=== PATIENT | female | born 1990 | race Caucasian/White ===

== ENCOUNTER 2017-05-30 13:20 | Inpatient (IN) | payer OTHER ==
[2017-05-30 13:47] VITALS: BMI 40.9
[2017-05-30 14:27] LABS: BASOPHIL 0.5 % (0-2.0); EOSINOPHIL 0.3 % (0-4.5); MCH 30.7 pg (25.7-33.7); MCHC 33.4 g/dl (32.0-36.0); MEAN PLT VOLUME 10.5 fl (7.5-11.1); NEUTROPHILS 83.5 % (42.8-82.8); PLATELET COUNT 135 K/MM3 (134-434); RDW 15.4 % (11.6-15.6); WHITE BLOOD COUNT 11.8 K/mm3 (4.0-10.0)
[2017-05-30 14:43] LABS: INR 0.96 (0.82-1.09); PROTHROMBIN TIME (PATIENT) 10.9 SEC (9.98-11.88)
[2017-05-30 14:46] LABS: ACTIVATED PTT 27.9 SECONDS (26.9-34.4)
[2017-05-30] MEDS ORDERED: ELECTROLYTE-148 SOLN 1,000 ML IV SCH (15:15)
[2017-05-30 15:24] LABS: ANION GAP 12 (8-16); CALCIUM 8.5 mg/dL (8.5-10.1); CO2 21 mmol/L (21-32); CREATININE 0.5 mg/dL (0.55-1.02); GLUCOSE,RANDOM 80 mg/dL (74-106)
[2017-05-30] MEDS ORDERED: PROMETHAZINE HCL 25 MG/1 ML VIAL IVPUSH ONE (19:00)
[2017-05-30] MEDS ORDERED: BUTORPHANOL TARTRATE 1 MG/ML VIAL IVPUSH ONE (19:00)
--- NOTE | 2017-05-30 23:50 | HP ---
Past Medical History - Primary Care Physician PCP:: Asa Saldivar - Admission Chief Complaint: 40 weeks, labor History of Present Illness: 26 yo f g 3 p0020 edc by sono 05/27/17 in labor, cx 3 cm 80 vx -2 mi, fhr cat 1 contraction q 3 , fhr cat1 History Source: Patient Limitations to Obtaining History: No Limitations - Past Medical History ...: 3 ...Para: 0 ...Term: 0 ...: 0 ...Spon : 0 ...Induced : 2 ...Multiple Gestation: 0 ...LMP: 08/11/16 ... Weeks Gestation by Dates: 41.5 ...EDC by Dates: 05/18/17 ...EDC by Sono: 05/27/17 - Past Surgical History Hx Myomectomy: No Hx Transabdominal Cerclage: No - Smoking History Smoking history: Never smoked Have you smoked in the past 12 months: No - Alcohol/Substance Use Hx Alcohol Use: No - Social History History of Recent Travel: No Home Medications - Allergies Allergies/Adverse Reactions: Allergies Allergy/AdvReac Type Severity Reaction Status Date / Time No Known Allergies Allergy Verified 05/30/17 13:39 - Home Medications Home Medications: Ambulatory Orders Vitamins (Sjr) - 1 tab PO DAILY 05/30/17 Review of Systems - Review of Systems Constitutional: reports: No Symptoms Eyes: reports: No Symptoms HENT: reports: No Symptoms Neck: reports: No Symptoms Cardiovascular: reports: No Symptoms Respiratory: reports: No Symptoms Gastrointestinal: reports: No Symptoms Breasts: reports: No Symptoms Reported Musculoskeletal: reports: No Symptoms Integumentary: reports: No Symptoms Neurological: reports: No Symptoms Endocrine: reports: No Symptoms Hematology/Lymphatic: reports: No Symptoms Psychiatric: reports: No Symptoms Physical Exam - Maternity Vital Signs: Vital Signs Temperature 98.6 F 05/30/17 22:00 Pulse Rate 88 05/30/17 23:00 Respiratory Rate 20 05/30/17 23:00 Blood Pressure 132/89 05/30/17 23:00 O2 Sat by Pulse Oximetry (%) Constitutional: Yes: Well Nourished, No Distress, Calm Eyes: Yes: WNL, Conjunctiva Clear, EOM Intact HENT: Yes: WNL, Atraumatic, Normocephalic Neck: Yes: WNL, Supple, Trachea Midline Cardiovascular: Yes: WNL, Regular Rate and Rhythm Breast(s): Yes: WNL - Abdominal Exam/OB Fundal Height: 40 Number of Fetuses: Single Presentation: Vertex Contractions: Yes Regularity: Irregular Intensity: Mod/Strong Monitor Mode: External Heart Rate Location: [facility] Category: I Accelerations: Uniform Decelerations: None - Vaginal Exam/OB Vaginal Bleediing: No Speculum Exam: No Dilatation (cm): 3 cm Amniotic Membrane Status: Intact Presentation: Vertex/Position Station: -2 - Physical Exam Edema: Yes Edema: LLE: Trace, RLE: Trace Deep Tendon Reflex Grade: Normal +2 - Labs Lab Results: CBC, BMP 05/30/17 14:08 05/30/17 14:08 Hemorrhage Risk Assessment - Risk Factors Medium Risk Factors: Yes: None High Risk Factors: Yes: None Risk Score: 1 Risk Level: Medium Risk Problem List - Problems (1) Postmaturity , 40-42 weeks gestation Code(s): O48.0 - POST-TERM (2) Labor established Code(s): [id number] - Assessment/Plan admit , fhm, pain management
--- NOTE | 2017-05-30 23:58 | PN ---
Progress Note (short form) - Note Progress Note: cx 5 cm 80 vx -2 mi , fhr cat 1 . irregular contraction, ,pitocin rba explained Problem List - Problems (1) Postmaturity , 40-42 weeks gestation Code(s): O48.0 - POST-TERM (2) Labor established Code(s): [id number] -
[2017-05-31] MEDS: ELECTROLYTE-148 SOLN 1,000 ML IV SCH
[2017-05-31] MEDS: OXYTOCIN 15 UNITS/ LR 250 ML 250 ML IVPB SCH (00:15)
[2017-05-31] MEDS: FENTANYL/BUPIVACAINE/NS/PF - PCEA - 50 ML DISP.SYRIN EP SCH (03:30)
[2017-05-31] MEDS ORDERED: ELECTROLYTE-148 SOLN 1,000 ML IV ONE (05:30)
--- NOTE | 2017-05-31 07:57 | PN ---
Progress Note (short form) - Note Progress Note: cx 6 cm 80 vx -2 mi, fhr cat 1, arom, clear , on pitocin, regular contraction,, has epidural Problem List - Problems (1) Postmaturity , 40-42 weeks gestation Code(s): O48.0 - POST-TERM (2) Labor established Code(s): [id number] -
--- NOTE | 2017-05-31 11:59 | PN ---
Progress Note (short form) - Note Progress Note: cx full 100 vx 2+ , fhr reactive, pushing Problem List - Problems (1) Postmaturity , 40-42 weeks gestation Code(s): O48.0 - POST-TERM (2) Labor established Code(s): [id number] -
[2017-05-31] MEDS: OXYTOCIN 20 UNITS in 0.9% NS 1,000 ML IV SCH ×2 (12:15→14:10)
[2017-05-31] MEDS ORDERED: BISACODYL 10 MG SUPP.RECT RC PRN (12:28)
[2017-05-31] MEDS ORDERED: BENZOCAINE 20% 57 GM BOTTLE TP PRN (12:28)
[2017-05-31] MEDS ORDERED: WITCH HAZEL 50% (TUCKS) 40 PAD/JAR PAD TP PRN (12:28)
[2017-05-31] MEDS ORDERED: BENZOCAINE 28 GM HEMORRHOIDAL OINTMENT TP PRN (12:28)
[2017-05-31] MEDS ORDERED: METHYLERGONOVINE MALEATE 0.2 MG/1 ML AMP IM PRN (12:28)
[2017-05-31] MEDS ORDERED: oxyCODONE HCL 5 MG TABLET PO PRN (12:28)
[2017-05-31] MEDS ORDERED: D5W-LR W/ 20 UNITS OXYTOCIN 1,000 ML IV SCH (12:30)
[2017-05-31 12:52] LABS: ARTERIAL BLD GAS O2 SATURATION 16.1 % (90-98.9); ARTERIAL BLOOD GAS BASE EXCESS -11.1 meq/l (-2-2); ARTERIAL BLOOD GAS HCO3 21.5 meq/L (22-26); ARTERIAL BLOOD GAS PO2 16.5 mmHg (80-100)
[2017-05-31 12:56] LABS: TYPE OF O2 room air
[2017-05-31 12:57] LABS: ARTERIAL BLOOD GAS pH 7.09 (7.35-7.45)
[2017-05-31 12:59] LABS: VENOUS BLOOD GAS HCO3 19.4 meq/L (19-25); VENOUS PH 7.28 (7.32-7.42)
[2017-05-31] MEDS: IBUPROFEN 600 MG TABLET (FP) PO PRN ×2 (13:08→17:13)
[2017-05-31] MEDS: ACETAMINOPHEN 325 MG TABLET (FP) PO PRN ×2 (13:09→17:12)
[2017-05-31] MEDS: FERROUS SO4 325 MG TABLET (FP) PO SCH (21:49)
[2017-06-01 08:57] LABS: BASOPHIL 0.4 % (0-2.0); EOSINOPHIL 0.8 % (0-4.5); MCH 31.3 pg (25.7-33.7); MCHC 33.3 g/dl (32.0-36.0); MEAN CELL VOLUME 93.9 fl (80-96); MEAN PLT VOLUME 10.7 fl (7.5-11.1); NEUTROPHILS 72.3 % (42.8-82.8); PLATELET COUNT 115 K/MM3 (134-434); RDW 15.6 % (11.6-15.6); WHITE BLOOD COUNT 13.1 K/mm3 (4.0-10.0)
[2017-06-01] MEDS: PRENATAL VITAMINS W/ FOLIC ACID TABLET (FP) PO SCH (09:50)
[2017-06-01] MEDS: FERROUS SO4 325 MG TABLET (FP) PO SCH ×2 (09:50→22:45)
[2017-06-01] MEDS ORDERED: DIPHTH,PERTUSS(ACELL),TET 0.5 ML DISP.SYRIN IM ONE (14:00)
[2017-06-01] MEDS ORDERED: FLU VACC QS2017-18 36MOS UP/PF 60 MCG/0.5 ML SYRINGE IM ONE (14:00)
[2017-06-01] MEDS: OXYTOCIN 15 UNITS/ LR 250 ML 250 ML IVPB SCH (19:29)
[2017-06-01] MEDS: FENTANYL/BUPIVACAINE/NS/PF - PCEA - 50 ML DISP.SYRIN EP SCH (19:30)
[2017-06-01] MEDS: ELECTROLYTE-148 SOLN 1,000 ML IV SCH (19:30)
--- NOTE | 2017-06-01 21:57 | PN ---
Progress Note (short form) - Note Progress Note: ppd 1doing well, no c/o voids ok CBC, BMP 06/01/17 08:00 05/30/17 14:08 Last Vital Signs Temp Pulse Resp BP Pulse Ox 99.4 F 112 H 20 122/74 100 06/01/17 14:00 06/01/17 14:00 06/01/17 14:00 06/01/17 14:00 05/31/17 13:45 abdomen soft, no cva, uterus firm, non tender lochia mild no calf tenderness plan ambulate ,plan for d/c home in am Problem List - Problems (1) Postmaturity , 40-42 weeks gestation Code(s): O48.0 - POST-TERM (2) Labor established Code(s): [id number] -
[2017-06-01] MEDS ORDERED: SENNOSIDES/DOCUSATE COMBO (SENNA PLUS) TABLET (UD) PO PRN (22:00)
[2017-06-02 00:16] VITALS: TEMP 98.2
--- NOTE | 2017-06-02 08:05 | DS ---
Physical Exam-[employer]PER Vital Signs: Vital Signs Temperature 98.2 F 06/01/17 22:00 Pulse Rate 99 H 06/01/17 22:00 Respiratory Rate 20 06/01/17 22:00 Blood Pressure 133/85 06/01/17 22:00 O2 Sat by Pulse Oximetry (%) 100 05/31/17 13:45 Constitutional: Yes: Well Nourished, No Distress, Calm Eyes: Yes: WNL, Conjunctiva Clear, EOM Intact HENT: Yes: WNL, Atraumatic, Normocephalic Neck: Yes: WNL, Supple, Trachea Midline Cardiovascular: Yes: WNL, Regular Rate and Rhythm Respiratory: Yes: WNL, Regular, CTA Bilaterally Gastrointestinal: Yes: WNL ...Rectal Exam: Yes: WNL Renal/: Yes: WNL External Genitalia: Yes: Normal ....Post : Yes: Uterus firm, Uterus non-tender, Slight lochia rubra Breast(s): Yes: WNL Musculoskeletal: Yes: WNL Extremities: Yes: WNL Edema: Yes Edema: LLE: Trace, RLE: Trace Integumentary: Yes: WNL Neurological: Yes: WNL, Alert, Oriented ...Motor Strength: WNL Psychiatric: Yes: WNL, Alert, Oriented Labs: CBC, BMP 06/01/17 08:00 05/30/17 14:08 Delivery - Delivery Vaginal Delivery: Spontaneous (no complication) Type of Anesthesia: Local, Epidural Episiotomy/Laceration: Right Mediolateral EBL (cc): 300 Delivery, Single - Stages of Labor Date 1st Stage Initiatied: 05/30/17 Time 1st Stage Initiated: 11:00 Date 2nd Stage Initiated: 05/31/17 Time 2nd Stage Initiated: 11:55 Date of Delivery: 05/31/17 Time of Delivery: 12:09 Time Placenta Delivered: 12:15 Placenta: Yes: Spontaneous - Condition of Infant Quality Reviewer/Victim Advocate Present: No Infant Gender: Male Weight: 7 lb 15 oz Position: Left, OA Total Hours ROM (Hrs/Mins): 4HRS 40MIN - 1 Minute Total Score: 9 5 Minutes Total Score: 9 - Feeding Plan Initial Plan: Elected not to breastfeed exclusively throughout hospitalization Discharge Summary Reason For Visit: LABOR Current Active Problems Labor established (Acute) Postmaturity , 40-42 weeks gestation (Acute) Procedures: Principal: Condition: Good - Instructions Diet, Activity, Other Instructions: regular diet, no intercourse, follow up [facility] care 4 weeks Referrals: Asa Saldivar MD [Staff Physician] - Disposition: HOME - Home Medications Comprehensive Discharge Medication List: Ambulatory Orders Vitamins (Sjr) - 1 tab PO DAILY 05/30/17 Ibuprofen [Motrin -] 600 mg PO QID #28 tablet 06/01/17
[2017-06-02] MEDS: PRENATAL VITAMINS W/ FOLIC ACID TABLET (FP) PO SCH (10:41)
[2017-06-02] MEDS: FERROUS SO4 325 MG TABLET (FP) PO SCH (10:41)
[2017-06-02 11:51] VITALS: BP 120/66; PULSE 87
== END 2017-06-02 14:10 | disposition home or self-care (01) | DRG 560 ==
LOC: JLDR 13:20 → J3W 05-31 14:18
PROVIDERS: ADMIT Obstetrics & Gynecology; ATTEND Obstetrics & Gynecology
PROC: 10E0XZZ Delivery of Products of Conception, External Approach (ICD-10-PCS; principal; 2017-05-30)
PROC: 0W8NXZZ Division of Female Perineum, External Approach (ICD-10-PCS; 2017-05-30)
DX: O48.0 Post-term pregnancy (principal); Z3A.41 41 weeks gestation of pregnancy; Z37.0 Single live birth
CPT/HCPCS: 36415; 36600; 59409; 80048; 82803; 85025; 85610; 85730; 86593; 86850; 86900; 86901; 90686; 90715; G0008

== ENCOUNTER 2024-05-10 08:43 | Emergency (ER) | payer OTHER ==
[2024-05-10 08:52] VITALS: RESP 18; TEMP 97.3; BMI 41.5
[2024-05-10] MEDS: LACTATED RINGERS SOLUTION 1,000 ML/1,000 ML INFUS.BAG IV STA (11:12)
[2024-05-10] MEDS ORDERED: ACETAMINOPHEN INJECTION 100 ML ONE (11:34)
[2024-05-10 11:37] LABS: BASO % 0.6 % (0-2.0); EOS % 0.5 % (0-4.5); HEMATOCRIT 37.4 % (32.4-45.2); HEMOGLOBIN 12.6 GM/dL (10.7-15.3); LYMPH % 10.9 % (8-40); MCH 30.2 pg (25.7-33.7); MCHC 33.7 g/dl (32.0-36.0); MEAN CELL VOLUME 89.5 fl (80-96); MONO % 6.3 % (3.8-10.2); NEUT % 81.7 % (42.8-82.8); PLATELET COUNT 245 10^3/uL (134-434); RBC 4.18 M/mm3 (3.60-5.2); RDW 14.1 % (11.6-15.6); WHITE BLOOD COUNT 11.1 K/mm3 (4.0-10.0)
[2024-05-10] MEDS: ACETAMINOPHEN 1000 MG/100 ML BAG IVPB ONE (11:56)
[2024-05-10 12:05] LABS: CHLORIDE 108 mmol/L (98-107); SODIUM 140 mmol/L (136-145)
[2024-05-10 12:07] LABS: ALBUMIN 3.8 g/dl (3.4-5.0); ANION GAP 5 mmol/L (4-13); BLOOD UREA NITROGEN 11.9 mg/dL (7-18); CO2 26 mmol/L (21-32); GLUCOSE,RANDOM 132 mg/dL (74-106)
[2024-05-10 12:10] LABS: SGOT/AST 20 U/L (15-37); SGPT/ALT 36 U/L (13-61)
[2024-05-10 12:11] LABS: CREATININE 0.7 mg/dL (0.55-1.3)
[2024-05-10 12:13] LABS: ALK PHOS 61 U/L (45-117); BILIRUBIN,TOTAL 0.2 mg/dL (0.2-1)
[2024-05-10] MEDS ORDERED: morphine SULFATE 4 MG/ML VIAL ONE (13:28)
[2024-05-10] MEDS: morphine CARPU-JECT 4 MG/1 ML DISP.SYRIN IVPUSH ONE (13:58)
[2024-05-10] MEDS ORDERED: KETOROLAC TROMETHAMINE 30 MG/1 ML VIAL ONE (15:05)
[2024-05-10] MEDS: KETOROLAC TROMETHAMINE 30 MG/1 ML VIAL IVPUSH ONE (15:14)
[2024-05-10 17:03] VITALS: BP 130/84; PULSE 93
== END 2024-05-10 21:49 | disposition short-term general hospital (02) ==
LOC: JER 08:43 → JERFT 08:43 → JER 21:49
PROC: 3E033NZ Introduction of Analgesics, Hypnotics, Sedatives into Peripheral Vein, Percutaneous Approach (ICD-10-PCS; principal; 2024-05-10)
PROC: 3E033NZ Introduction of Analgesics, Hypnotics, Sedatives into Peripheral Vein, Percutaneous Approach (ICD-10-PCS; 2024-05-10)
PROC: 3E0333Z Introduction of Anti-inflammatory into Peripheral Vein, Percutaneous Approach (ICD-10-PCS; 2024-05-10)
PROC: 3E0337Z Introduction of Electrolytic and Water Balance Substance into Peripheral Vein, Percutaneous Approach (ICD-10-PCS; 2024-05-10)
DX: S30.23XA Contusion of vagina and vulva, initial encounter (principal); R10.2 Pelvic and perineal pain; W01.0XXA Fall on same level from slipping, tripping and stumbling without subsequent striking against object, initial encounter; Y92.002 Bathroom of unspecified non-institutional (private) residence as the place of occurrence of the external cause
CPT/HCPCS: 36415; 76705-TC; 80053; 84702; 85025; 99285-25; J0131

== ENCOUNTER 2024-05-14 08:52 | Emergency (ER) | payer OTHER ==
[2024-05-14 08:59] VITALS: BP 129/86; PULSE 90; RESP 20; TEMP 98.2; BMI 41.5
[2024-05-14 10:11] LABS: BASO % 0.9 % (0-2.0); EOS % 1.9 % (0-4.5); HEMATOCRIT 35.2 % (32.4-45.2); HEMOGLOBIN 11.9 GM/dL (10.7-15.3); LYMPH % 14.4 % (8-40); MCH 30.7 pg (25.7-33.7); MCHC 33.7 g/dl (32.0-36.0); MEAN CELL VOLUME 91.2 fl (80-96); MEAN PLT VOLUME 10.3 fl (7.5-11.1); MONO % 5.2 % (3.8-10.2); NEUT % 77.6 % (42.8-82.8); PLATELET COUNT 321 10^3/uL (134-434); RBC 3.86 M/mm3 (3.60-5.2); WHITE BLOOD COUNT 10.4 K/mm3 (4.0-10.0)
[2024-05-14] MEDS ORDERED: KETOROLAC TROMETHAMINE 15 MG/ML VIAL ONE (10:17)
[2024-05-14 10:24] LABS: INR 1.02 (0.83-1.09); PROTHROMBIN TIME (PATIENT) 11.7 SEC (9.7-13.0)
[2024-05-14 10:26] LABS: POTASSIUM 5.4 mmol/L (3.5-5.1)
[2024-05-14] MEDS: KETOROLAC TROMETHAMINE 15 MG/ML VIAL IM ONE (10:26)
[2024-05-14 10:27] LABS: ACTIVATED PTT 36.5 SECONDS (25.2-36.5)
[2024-05-14 10:28] LABS: CALCIUM 8.9 mg/dL (8.5-10.1)
[2024-05-14 10:29] LABS: ALBUMIN 3.4 g/dl (3.4-5.0)
[2024-05-14 10:32] LABS: CREATININE 0.6 mg/dL (0.55-1.3)
[2024-05-14 10:33] LABS: BILIRUBIN,TOTAL 0.7 mg/dL (0.2-1); TOT PROT 7.3 g/dl (6.4-8.2)
[2024-05-14 12:01] LABS: HIV INTERPRETATION NEGATIVE (NEGATIVE)
[2024-05-14 12:15] LABS: POTASSIUM 4.1 mmol/L (3.5-5.1)
[2024-05-14 12:17] LABS: ALBUMIN 3.3 g/dl (3.4-5.0); BLOOD UREA NITROGEN 10.9 mg/dL (7-18); CALCIUM 8.7 mg/dL (8.5-10.1)
[2024-05-14 12:21] LABS: CREATININE 0.6 mg/dL (0.55-1.3)
[2024-05-14 12:22] LABS: BILIRUBIN,TOTAL 0.6 mg/dL (0.2-1)
[2024-05-14 12:23] LABS: TOT PROT 6.7 g/dl (6.4-8.2)
== END 2024-05-14 14:44 | disposition home or self-care (01) ==
LOC: JER 08:52
PROC: 3E0233Z Introduction of Anti-inflammatory into Muscle, Percutaneous Approach (ICD-10-PCS; principal; 2024-05-14)
DX: S30.23XA Contusion of vagina and vulva, initial encounter (principal); R26.2 Difficulty in walking, not elsewhere classified; W01.0XXA Fall on same level from slipping, tripping and stumbling without subsequent striking against object, initial encounter; Y92.002 Bathroom of unspecified non-institutional (private) residence as the place of occurrence of the external cause
CPT/HCPCS: 36415; 72170-TC-FY; 76705-TC; 80053; 84703; 85025; 85610; 85730; 86803; 86850; 86900; 86901; 87389; 96372; 99285-25